=== PATIENT | female | born 1935 | race Caucasian/White ===

== ENCOUNTER → 2018-06-15 | Outpatient (CLI) | payer MEDICARE, BC | LOC: COL.RAD 12:30 | DX: Z01.812 Encounter for preprocedural laboratory examination (principal); F03.91 Unspecified dementia, unspecified severity, with behavioral disturbance; G31.9 Degenerative disease of nervous system, unspecified; I67.82 Cerebral ischemia | CPT/HCPCS: A9585 ==

== ENCOUNTER → 2018-09-07 | Outpatient (CLI) | payer MEDICARE, BC ==
[2018-09-07 15:18] LABS: BASO % 0.6 % (0.0-2.0); EOS # 0.3 (0.0-0.7); EOS % 3.6 % (0-4.0); GRAN # 3.4 (1.4-6.5); GRAN % 47.6 % (42.2-75.2); HEMATOCRIT 43.6 % (37.0-47.0); HEMOGLOBIN 14.6 g/dl (12.5-16.0); LYMPH # 2.9 (1.2-3.4); LYMPH % 40.7 % (20.0-51.0); MEAN CELL VOLUME 97 fl (80.0-100.0); MEAN CORPUSCULAR HEMOGLOBIN 32 pg (27.0-31.0); MEAN CORPUSCULAR HGB CONC 34 g/dl (33.0-37.0); MEAN PLATELET VOLUME 12.9 fl (7.4-10.4); MONO # 0.5 (0.1-0.6); MONO % 7.2 % (1.7-9.3); PLATELET COUNT 158 K/mm3 (130-400); RED BLOOD COUNT 4.51 M/mm3 (4.10-5.30); REDCELL DISTRIBUTION WIDTH-CV 13.2 % (11.5-14.5)
[2018-09-07 15:27] LABS: ALBUMIN 3.9 gm/dL (3.5-5.0); BILIRUBIN,TOTAL 0.8 mg/dL (0.0-1.0); CALCIUM 9.6 mg/dL (8.4-10.2); CHOLESTEROL RISK RATIO 3.3; CREATININE, serum 0.8 (0.52-1.25); POTASSIUM 3.8 mmol/L (3.4-5.0); TOTAL PROTEIN 7.4 gm/dL (6.4-8.2)
== END ==
LOC: ZLAB.STJ 10:51
PROVIDERS: Internal Medicine
DX: M10.9 Gout, unspecified (principal); N39.0 Urinary tract infection, site not specified; E64.3 Sequelae of rickets; I12.9 Hypertensive chronic kidney disease with stage 1 through stage 4 chronic kidney disease, or unspecified chronic kidney disease; N18.9 Chronic kidney disease, unspecified

== ENCOUNTER → 2019-01-25 | Outpatient (CLI) | payer MEDICARE, BC ==
[2019-01-25 13:35] LABS: CALCIUM 9.3 mg/dL (8.4-10.2); CREATININE, serum 0.94 (0.52-1.25); POTASSIUM 3.7 mmol/L (3.4-5.0)
== END ==
LOC: ZLAB.STJ 13:11
PROVIDERS: Internal Medicine
DX: R79.89 Other specified abnormal findings of blood chemistry (principal)

== ENCOUNTER 2019-10-16 20:05 | Observation (INO) | payer MEDICARE, BC ==
[~2019-10-16] VITALS: Ht 172.7 cm; Wt 66.1 kg
[2019-10-16 20:26] LABS: BASO % 0.3 % (0.0-2.0); EOS # 0.2 (0.0-0.7); EOS % 3.4 % (0-4.0); GRAN # 3.1 (1.4-6.5); GRAN % 46.2 % (42.2-75.2); HEMOGLOBIN 11.6 g/dl (12.5-16.0); LYMPH # 2.7 (1.2-3.4); LYMPH % 40.7 % (20.0-51.0); MEAN CELL VOLUME 102 fl (80.0-100.0); MEAN CORPUSCULAR HEMOGLOBIN 35 pg (27.0-31.0); MEAN CORPUSCULAR HGB CONC 34 g/dl (33.0-37.0); MEAN PLATELET VOLUME 11.5 fl (7.4-10.4); MONO # 0.6 (0.1-0.6); MONO % 9.1 % (1.7-9.3); PLATELET COUNT 120 K/mm3 (130-400); RED BLOOD COUNT 3.32 M/mm3 (4.10-5.30); REDCELL DISTRIBUTION WIDTH-CV 12.6 % (11.5-14.5)
[2019-10-16 20:40] LABS: ALANINE AMINOTRANSFERASE 11 U/L (4-34); ALKALINE PHOSPHATASE 53 U/L (50-136); ANION GAP 4 mmol/L (7-16); AST,SGOT 39 U/L (15-37); BILIRUBIN,TOTAL 0.5 mg/dL (0.0-1.0); BLOOD UREA NITROGEN 20 mg/dL (7-17); CALCIUM 8.4 mg/dL (8.4-10.2); CARBON DIOXIDE 32 mmol/L (22-30); CHLORIDE 100 mmol/L (98-107); CREATININE, serum 0.85 (0.52-1.25); GLUCOSE 119 mg/dL (74-106); POTASSIUM 3.3 mmol/L (3.4-5.0); SODIUM 136 mmol/L (137-145)
[2019-10-16 21:05] LABS: C-REACTIVE PROTEIN < 0.5 mg/dL (0.0-0.9); TROPONIN-I < 0.012 ng/mL (0.000-0.035)
[2019-10-16] MEDS ORDERED: TYLENOL 325MG325 MG PO (21:48)
[2019-10-16] MEDS ORDERED: ASPIRIN 81M81 MG/TA2 PO (21:49)
[2019-10-16] MEDS ORDERED: ZYLOPRIM 100MG100 MG PO (21:49)
[2019-10-16] MEDS ORDERED: ANTACID200 MG PO (21:50)
[2019-10-16] MEDS ORDERED: ZYRTEC 10MG10 MG PO (21:51)
[2019-10-16] MEDS ORDERED: B-12 500 MCG PO (21:53)
[2019-10-16] MEDS ORDERED: DEPAKOTE500 MG PO (21:54)
[2019-10-16] MEDS ORDERED: ARICEPT 5MG PO (21:55)
[2019-10-16] MEDS ORDERED: GERI-LANTA 355355 ML PO (21:58)
[2019-10-16] MEDS ORDERED: HCTZ 25MG TAB25 MG PO (21:59)
[2019-10-16] MEDS ORDERED: LEXAPRO 10MG10 MG PO (21:59)
[2019-10-16] MEDS ORDERED: COZAAR100 MG PO (22:00)
[2019-10-16] MEDS ORDERED: TOPROL XL 50MG50 MG PO (22:00)
[2019-10-16] MEDS ORDERED: PRILOTC (22:02)
[2019-10-16] MEDS ORDERED: MIRALAX PA17 GM/Dose PO (22:02)
[2019-10-16] MEDS ORDERED: SEROQUEL 2525 MG/TAB PO (22:04)
[2019-10-16] MEDS ORDERED: MIRTAZAPINE7.5 MG PO (22:05)
[2019-10-16] MEDS ORDERED: SEROQUEL50 MG PO (22:05)
[2019-10-16] MEDS ORDERED: EXELON9.5 MG/24 TD (22:06)
[2019-10-16] MEDS ORDERED: VITAMIN D31000 I1 PO (22:06)
[2019-10-16 22:44] LABS: COLLECTION METHOD CATHETER
[2019-10-16 22:49] LABS: PH 7 (5-8); SQUAMOUS EPITHELIAL 0-2 /hpf; URINE APPEARANCE Clear; URINE BACTERIA None Seen /hpf; URINE BILIRUBIN Negative (NEGATIVE); URINE BLOOD Negative (NEGATIVE); URINE COLOR Straw; URINE GLUCOSE Negative (NEGATIVE); URINE KETONE Negative (NEGATIVE); URINE LEUKOCYTE ESTERASE Negative (NEGATIVE); URINE NITRATE Negative (NEGATIVE); URINE PROTEIN(semi-quant) Negative (NEGATIVE); URINE UROBILINOGEN Negative (NEGATIVE)
[2019-10-16 23:38] VITALS: BP 146/65; PULSE 53; TEMP 97
--- NOTE | 2019-10-16 23:44 | NUR ---
Pt arrived to room from ED. Initial vitals obtained. Pt alert and following commands. When asking oriention questions, pt gets agitated and refuses to answer any of questions. Attempted to ask pt what her name and date of was and pt just stated "well you already know it so why do I have to tell you?". When reorienting pt that she is in the hospital, pt states "no I am not because I am not sick.". Head to toe assessment completed. IVF infusing per orders to left AC IV. Tele on. Pt denies pain. Fall precautions implemented. Bed alarm on. Call light within reach. Will continue to monitor
[2019-10-17] VITALS (8 sets, daily range): BP systolic 146–158; BP diastolic 55–88; PULSE 5–70; TEMP 97.2–98
--- NOTE | 2019-10-17 05:01 | NUR ---
Pt has rested well since admit. Pt has denied pain. IVF infusing per orders to left ac IV. Pt continues to refuse to answer orientation questions. Denies any other needs at this time. Call light within reach. Fall precautions in place. Bed alarm on.
[2019-10-17 07:24] LABS: BASO % 0.3 % (0.0-2.0); EOS # 0.2 (0.0-0.7); EOS % 3.1 % (0-4.0); GRAN # 2.7 (1.4-6.5); GRAN % 38.9 % (42.2-75.2); HEMATOCRIT 38.1 % (37.0-47.0); HEMOGLOBIN 12.8 g/dl (12.5-16.0); LYMPH # 3.4 (1.2-3.4); LYMPH % 50.1 % (20.0-51.0); MEAN CELL VOLUME 101 fl (80.0-100.0); MEAN CORPUSCULAR HEMOGLOBIN 34 pg (27.0-31.0); MEAN CORPUSCULAR HGB CONC 34 g/dl (33.0-37.0); MONO # 0.5 (0.1-0.6); MONO % 7.3 % (1.7-9.3); PLATELET COUNT 115 K/mm3 (130-400); RED BLOOD COUNT 3.78 M/mm3 (4.10-5.30); REDCELL DISTRIBUTION WIDTH-CV 12.6 % (11.5-14.5)
[2019-10-17 07:37] LABS: CALCIUM 8.7 mg/dL (8.4-10.2); CREATININE, serum 0.7 (0.52-1.25); POTASSIUM 3.9 mmol/L (3.4-5.0)
--- NOTE | 2019-10-17 07:38 | NUR ---
BECCA MINOR AT [facility], MADE AWARE OF PATIENT STATUS AND BEING HERE AT THE FACILITY. BECCA NOW IN ROOM WITH THE PATIENT.
--- NOTE | 2019-10-17 09:32 | NUR ---
PATIENT IS LAYING IN BED THIS MORNING. PATIENT HANDS ARE SWOLLEN. PATIENT IS CONFUSED ON HER LOCATION AND WHERE ABOUTS. LUNGS ARE CLEAR.
--- NOTE | 2019-10-17 09:58 | NUR ---
patient daughter evelyne called and asked about the patinet. informed patients daughter about her status and that she is alert and confused this morning but is doing ok. heart rate is runnig in the 60s. she would like an update later on what is going on with her mom after the doctor sees her
--- NOTE | 2019-10-17 10:50 | NUR ---
First visit from the electric motor repairer. No needs right now.
--- NOTE | 2019-10-17 11:12 | NUR ---
PATIENT IS RESTING IN BED. PATIENT WAS INCONTINENT OF URINE AND USED THE BEDPAN. PATIENT WAS GIVEN A BED BATH AT THAT TIME WELL AND CHANGED.
--- NOTE | 2019-10-17 11:50 | NUR ---
PATIENT IS RESTING IN BED WITH CALL LIGHT IN REACH. DENIES ANY COMPLAINTS AT THIS TIME. CALL LIGHT WITHIN REACH
--- NOTE | 2019-10-17 14:31 | NUR ---
PATIENT IS SITTING ON THE SIDE OF THE BED EATING/PICKING AT HER LUNCH. PATIENT WAS AGITATED AND WANTED TO GO WHERE THE FOOD WAS. EXPLAINED TO THE PATIENT THAT IT WAS RIGHT IN FRONT OF HER
--- NOTE | 2019-10-17 14:57 | NUR ---
Behavioral Health Director contacted patient's daughter, Desiree (ph#[phone]) to discuss discharge planning due to patient's history of dementia and recent confusion. Desiree advised that her sister, Ani (ph#[phone]) is the primary point of contact. MANDEEP contacted Ani who advised patient is from [facility] and has been there since April. Patient sees Dr. Rinaldi for primary care and has medications administered to her by staff at [facility]. Ani states they have not been able to visit patient so she is unsure about assistance needed with ADLS at this time. Ani advised that discharge plan is to return to [facility] at discharge. Patient has DPOA-HC in EMR which designates Ani, Desiree, and Rosalind (ph#[phone]), her daughters. MANDEEP contacted JACQUELINE Lennon at [facility] who advised they can accept patient back but will require a COVID test. MANDEEP faxed clinical updates and spoke with Roxanne PHILLIPS about ordering a COVID test. MANDEEP will continue to follow.
--- NOTE | 2019-10-17 18:28 | NUR ---
patient will go from sitting on the edge of the bed to laying in the bed, patient is confused and did pull out her iv. it was replace and wrapped in co-band. patient is not reporting any pain or saying that anything is hurting. will report off to day shift.
--- NOTE | 2019-10-17 21:20 | NUR ---
Pt assessment completed and charted, [place]. Pt is confused and is trying to get up from the bed and walk out. Pt is also trying to pull her IV off. Meds provided as per APR, tolerated well. Helped to settled on bed, call light on reach, no further needs at this time. Answered all her questions and convinced her to settled down on her bed. Will keep monitoring her.
--- NOTE | 2019-10-18 01:35 | NUR ---
Pt is settled on her bed and slept for 3 hrs and now pt is throwing her blankets off, so took out her extra blanket and helped her settled down again.
[2019-10-18 03:31] VITALS: BP 154/98; PULSE 58; TEMP 97.8
--- NOTE | 2019-10-18 05:24 | NUR ---
Pt slept on and off through out the night, pt is awake but still on bed. Call light on reach, no further needs at this time.
[2019-10-18 09:13] VITALS: BP 142/60; PULSE 74; TEMP 97.8
--- NOTE | 2019-10-18 10:56 | NUR ---
Lead Software Tester attended clinical rounds with the team. The patient could potentially discharge today, pending Cardiology decision. Lead Software Tester faxed udpates to [facility]. SW contacted [facility] to discuss discharge, left message.
[2019-10-18 13:08] VITALS: BP 155/67; PULSE 70; TEMP 97.5
--- NOTE | 2019-10-18 13:34 | NUR ---
Tow Car Driver staffed with Hmaida at [facility]. Hamida reports the latest they can medicinal plant picker the patient is 5:00 pm. The patient's Covid test is still pending at this time. Will continue to monitor
--- NOTE | 2019-10-18 13:39 | NUR ---
Primary nurse was assisted with [id number] patient care by [employer] student Yolanda Peters and [employer] instructor Josefina Esquivel RN-.
--- NOTE | 2019-10-18 16:10 | NUR ---
The patient is to discharge today, 10/17 back to [facility]. MANDEEP faxed discharge orders and negative covid results. The patient will be transported at approximately 1645. MANDEEP contacted the patient's daugherAni she was in agreeance. There are no additional needs at this time.
== END 2019-10-18 17:07 ==
LOC: COL.ER 20:05 → MEDICAL 22:10
PROVIDERS: Emergency Medicine; ADMIT Student in an Organized Health Care Education/Training Program
DX: R00.1 Bradycardia, unspecified (principal); E03.9 Hypothyroidism, unspecified; I95.9 Hypotension, unspecified; I10 Essential (primary) hypertension; F03.90 Unspecified dementia, unspecified severity, without behavioral disturbance, psychotic disturbance, mood disturbance, and anxiety; M10.9 Gout, unspecified; K21.9 Gastro-esophageal reflux disease without esophagitis; F32.9 Major depressive disorder, single episode, unspecified; E87.6 Hypokalemia; R45.1 Restlessness and agitation; D69.6 Thrombocytopenia, unspecified; E44.1 Mild protein-calorie malnutrition; Z20.828 Contact with and (suspected) exposure to other viral communicable diseases; Z79.82 Long term (current) use of aspirin; Z90.710 Acquired absence of both cervix and uterus; Z96.651 Presence of right artificial knee joint; Z88.1 Allergy status to other antibiotic agents; Z88.8 Allergy status to other drugs, medicaments and biological substances
CPT/HCPCS: 99239; G0378; J1630; J7030

== ENCOUNTER 2020-07-11 08:21 | Day surgery (SDC) | payer MEDICARE, BC ==
[~2020-07-11] VITALS: Ht 172.7 cm; Wt 70.1 kg
[~2020-07-11 08:21] MED LIST: ANTACID200 MG PO; ARICEPT 5MG PO; ASPIRIN 81M81 MG/TA2 PO; B-12 500 MCG PO; COZAAR100 MG PO; DEPAKOTE500 MG PO; EXELON9.5 MG/24 TD; GERI-LANTA 355355 ML PO; HCTZ 25MG TAB25 MG PO; LEXAPRO 10MG10 MG PO; MIRALAX PA17 GM/Dose PO; MIRTAZAPINE7.5 MG PO; PRILOTC; SEROQUEL 2525 MG/TAB PO; SEROQUEL50 MG PO; TOPROL XL 50MG50 MG PO; TYLENOL 325MG325 MG PO; VITAMIN D31000 I1 PO; ZYLOPRIM 100MG100 MG PO; ZYRTEC 10MG10 MG PO
[2020-07-11 09:05] VITALS: BP 129/68; PULSE 72; TEMP 97.6
[2020-07-11] MEDS ORDERED: TYLENOL 325MG325 MG PO (09:15)
[2020-07-11] MEDS ORDERED: GENTLE LAXATIVE10 MG RC (09:18)
[2020-07-11] MEDS ORDERED: TUSSIN DM CLEA120 ML PO (09:20)
[2020-07-11] MEDS ORDERED: SYNTHROID 0.0.025 MG PO (09:23)
[2020-07-11] MEDS ORDERED: GOOD SENSE400 MG/5 M PO (09:25)
[2020-07-11] MEDS ORDERED: ONE-A-DAY ESSE1 EACH PO (09:26)
[2020-07-11 11:10] VITALS: BP 133/61; PULSE 55; TEMP 97.6
--- NOTE | 2020-07-11 11:10 | NUR ---
Procedure complete. Pt sleeping. Awakens easily to name. Denies pain. Pt refusing food and drink at this time. Quickly falls back to sleep. Call light within reach. Side rails up x2.
--- NOTE | 2020-07-11 11:30 | NUR ---
Report given to Hamida PHILLIPS at [facility]. Questions invited and answered.
--- NOTE | 2020-07-11 11:45 | NUR ---
Pt dressed and up to wheel chair. Pericare provided and new attends placed. Pt given muffin and juice. Nurse assisted pt with eating and drinking. Pt pleasent.
--- NOTE | 2020-07-11 12:00 | NUR ---
Pt asks to use the restroom. Pt assisted to toilet with 2 assist. Pt has large BM. Pt assisted with pericare. New attends placed. Pt back to wheel chair with 2 assist.
--- NOTE | 2020-07-11 12:25 | NUR ---
Pt escorted to [facility] transportation vehicle via wheel chair. Pt accompanied home by the [facility] staff.
== END 2020-07-11 12:25 | disposition home or self-care (01) ==
LOC: SDCO 08:21
DX: N30.20 Other chronic cystitis without hematuria (principal); N39.46 Mixed incontinence; R15.9 Full incontinence of feces; K21.9 Gastro-esophageal reflux disease without esophagitis; M10.9 Gout, unspecified; E78.5 Hyperlipidemia, unspecified; I95.9 Hypotension, unspecified; E03.9 Hypothyroidism, unspecified; E87.6 Hypokalemia; E55.9 Vitamin D deficiency, unspecified; Z79.890 Hormone replacement therapy; Z79.899 Other long term (current) drug therapy

== ENCOUNTER 2020-07-23 18:36 | Emergency (ER) | payer MEDICARE, BC ==
[~2020-07-23] VITALS: Ht 167.6 cm; Wt 77.3 kg
[~2020-07-23 18:36] MED LIST changes: +GENTLE LAXATIVE10 MG RC; +GOOD SENSE400 MG/5 M PO; +ONE-A-DAY ESSE1 EACH PO; +SYNTHROID 0.0.025 MG PO; +TUSSIN DM CLEA120 ML PO
[2020-07-23 18:42] VITALS: TEMP 98.5
[2020-07-23 18:55] LABS: BASO % 0.4 % (0.0-2.0); EOS # 0.1 (0.0-0.7); EOS % 1.8 % (0-4.0); GRAN # 4.2 (1.4-6.5); GRAN % 53.4 % (42.2-75.2); HEMOGLOBIN 11.9 g/dl (12.5-16.0); LYMPH # 2.7 (1.2-3.4); LYMPH % 34.3 % (20.0-51.0); MEAN CELL VOLUME 101 fl (80.0-100.0); MEAN CORPUSCULAR HEMOGLOBIN 33 pg (27.0-31.0); MEAN CORPUSCULAR HGB CONC 33 g/dl (33.0-37.0); MEAN PLATELET VOLUME 11.2 fl (7.4-10.4); MONO # 0.8 (0.1-0.6); MONO % 9.7 % (1.7-9.3); PLATELET COUNT 139 K/mm3 (130-400); RED BLOOD COUNT 3.59 M/mm3 (4.10-5.30); REDCELL DISTRIBUTION WIDTH-CV 13.2 % (11.5-14.5)
[2020-07-23 19:00] LABS: HEMATOCRIT 36.4 % (37.0-47.0)
[2020-07-23 19:08] LABS: CREATININE, serum 0.73 (0.52-1.25); POTASSIUM 3.8 mmol/L (3.4-5.0)
[2020-07-23 20:14] VITALS: BP 186/93; PULSE 75
== END 2020-07-23 20:16 ==
LOC: COL.ER 18:36
PROVIDERS: Emergency Medicine
DX: S00.211A Abrasion of right eyelid and periocular area, initial encounter (principal); F03.90 Unspecified dementia, unspecified severity, without behavioral disturbance, psychotic disturbance, mood disturbance, and anxiety; E03.9 Hypothyroidism, unspecified; K21.9 Gastro-esophageal reflux disease without esophagitis; I10 Essential (primary) hypertension; Z79.899 Other long term (current) drug therapy; W06.XXXA Fall from bed, initial encounter; Y92.129 Unspecified place in nursing home as the place of occurrence of the external cause
CPT/HCPCS: J2060

== ENCOUNTER → 2020-08-06 | Outpatient (CLI) | payer MEDICARE, BC | LOC: COL.RAD 08:15 | DX: Z87.440 Personal history of urinary (tract) infections (principal) ==

== ENCOUNTER 2021-09-16 09:45 | Emergency (ER) | payer MEDICARE, BC ==
[~2021-09-16] VITALS: Ht 170.2 cm; Wt 81.8 kg
[2021-09-16 10:40] LABS: BASO % 0.3 % (0.0-2.0); EOS % 0.1 % (0.0-4.0); GRAN # 8.5 K/mm3 (1.4-6.5); GRAN % 67.9 % (42.2-75.2); HEMATOCRIT 39.3 % (37.0-47.0); LYMPH # 3.2 K/mm3 (1.2-3.4); LYMPH % 25.8 % (20.0-51.0); MEAN CELL VOLUME 101 fl (80.0-100.0); MEAN CORPUSCULAR HEMOGLOBIN 34 pg (27-31); MEAN CORPUSCULAR HGB CONC 33 g/dl (33.0-37.0); MEAN PLATELET VOLUME 13.5 fl (7.4-10.4); MONO # 0.7 K/mm3 (0.1-0.6); MONO % 5.5 % (1.7-9.3); PLATELET COUNT 99 K/mm3 (130-400); RED BLOOD COUNT 3.88 M/mm3 (4.10-5.30); REDCELL DISTRIBUTION WIDTH-CV 13.2 % (11.5-14.5)
[2021-09-16 10:54] LABS: ALBUMIN 2.8 gm/dL (3.4-4.8); BILIRUBIN,TOTAL 0.7 mg/dL (0.2-1.2); CALCIUM 8.9 mg/dL (8.4-10.2); CREATININE, serum 0.71 mg/dL (0.57-1.11); POTASSIUM 3.9 mmol/L (3.5-4.5); TOTAL PROTEIN 7.6 gm/dL (6.2-8.1)
--- NOTE | 2021-09-16 11:49 | NUR ---
Wrong chart for PICC insertion order. disregard.
[2021-09-16 13:15] LABS: COLLECTION METHOD CATHETER; PH 7 (5-8); URINE APPEARANCE Hazy (CLEAR/HAZY); URINE BLOOD 3+ (NEGATIVE); URINE COLOR Yellow (YELLOW); URINE GLUCOSE Negative (NEGATIVE); URINE KETONE Negative (NEGATIVE); URINE NITRATE Negative (NEGATIVE); URINE PROTEIN(semi-quant) Negative (NEGATIVE); URINE RBC 20-50 /hpf (0-2); URINE UROBILINOGEN Negative (NEGATIVE)
[2021-09-16 13:17] VITALS: TEMP 99.4
[2021-09-16] MEDS ORDERED: ROCEPHIN 2GM VIAL21 IJ (15:00)
[2021-09-16] MEDS ORDERED: ZITHROMAX Z PA250 MG PO (15:00)
[2021-09-16 16:15] VITALS: BP 183/85; PULSE 96
== END 2021-09-16 16:35 ==
LOC: COL.ER 09:45
PROVIDERS: Family Medicine
DX: J18.9 Pneumonia, unspecified organism (principal); R74.02 Elevation of levels of lactic acid dehydrogenase [LDH]; I10 Essential (primary) hypertension; R79.89 Other specified abnormal findings of blood chemistry; Z88.1 Allergy status to other antibiotic agents; Z20.822 Contact with and (suspected) exposure to COVID-19
CPT/HCPCS: J0360; J0696; J7030; J7120; Q9967